=== PATIENT | female | born 1955 | race Two or more races ===

== ENCOUNTER 2025-03-05 00:50 | Emergency (ER) | payer BC ==
[~2025-03-05] VITALS: Ht 165.1 cm; Wt 67.1 kg
[2025-03-05] MEDS ORDERED: IBU800 MG PO (04:43)
== END 2025-03-05 04:55 ==
LOC: ER 00:50
DX: S99.822A Other specified injuries of left foot, initial encounter (principal); S99.912A Unspecified injury of left ankle, initial encounter; X58.XXXA Exposure to other specified factors, initial encounter; Y93.89 Activity, other specified; Y92.89 Other specified places as the place of occurrence of the external cause; Y99.8 Other external cause status; Z88.1 Allergy status to other antibiotic agents